=== PATIENT | female | born 1950 | race Caucasian/White ===

== ENCOUNTER 2020-06-02 13:29 | Outpatient (REF) | payer MEDICARE, SELFPAY ==
--- NOTE | ~2020-06-02 | MM_ITS ---
EXAMINATION: MM SCREENING DIGITAL BREAST TOMOSYNTHESIS, BILATERAL CLINICAL INFORMATION: Screening. Asymptomatic. The lifetime risk of breast cancer based on the Tyrer-Cuzick Model is 3%. COMPARISON: Mammography: 03/17/2019, 01/22/2018, 01/05/2017 TECHNIQUE: Digital breast tomosynthesis is performed in both the craniocaudal and mediolateral oblique views along with computer-aided detection (CAD). Synthesized 2D images are generated from the tomosynthesis. Additional right MLO view is provided. FINDINGS: The breasts are heterogeneously dense, which may obscure small masses (ACR BI-RADS breast composition Category c). There are no significant masses, abnormal calcifications, or other abnormalities. No significant changes from prior studies. MM/MM tomosynthesis screening BI IMPRESSION: No mammographic evidence of malignancy. ASSESSMENT: BI-RADS 1: Negative RECOMMENDATION: Routine annual mammography screening. This patient's information was entered into a reminder system with a target due date for their next mammogram.
== END 2020-06-02 13:30 | disposition home or self-care (01) ==
LOC: HO.MAMMO 13:29
PROVIDERS: PCP Family Medicine; Visit Provider Advanced Practice Midwife
DX: Z12.31 Encounter for screening mammogram for malignant neoplasm of breast (principal)
CPT/HCPCS: 77063; 77067

== ENCOUNTER 2021-06-03 13:46 | Outpatient (REF) | payer MEDICARE, SELFPAY ==
--- NOTE | ~2021-06-03 | MM_ITS ---
EXAMINATION: MM SCREENING DIGITAL BREAST TOMOSYNTHESIS, BILATERAL CLINICAL INFORMATION: Screening. Asymptomatic. The lifetime risk of breast cancer based on the Tyrer-Cuzick Model is 3%. COMPARISON: Mammography: 06/02/2020, 03/17/2019, 01/22/2018 TECHNIQUE: Digital breast tomosynthesis is performed in both the craniocaudal and mediolateral oblique views along with computer-aided detection (CAD). Synthesized 2D images are generated from the tomosynthesis. FINDINGS: The breasts are heterogeneously dense, which may obscure small masses (ACR BI-RADS breast composition Category c). There are no significant masses, abnormal calcifications, or other abnormalities. Parenchymal pattern is similar to prior studies. No significant changes. MM/MM tomosynthesis screening BI IMPRESSION: No mammographic evidence of malignancy. ASSESSMENT: BI-RADS 1: Negative RECOMMENDATION: Routine annual mammography screening. This patient's information was entered into a reminder system with a target due date for their next mammogram.
== END 2021-06-03 13:47 | disposition home or self-care (01) ==
LOC: HO.MAMMO 13:46
PROVIDERS: Visit Provider Family Medicine
DX: Z12.31 Encounter for screening mammogram for malignant neoplasm of breast (principal)
CPT/HCPCS: 77063; 77067

== ENCOUNTER 2022-06-05 13:33 | Outpatient (REF) | payer MEDICARE, SELFPAY ==
--- NOTE | ~2022-06-05 | MM_ITS ---
EXAMINATION: MM SCREENING DIGITAL BREAST TOMOSYNTHESIS, BILATERAL CLINICAL INFORMATION: Screening. Asymptomatic. The lifetime risk of breast cancer based on the Tyrer-Cuzick Model is 3%. COMPARISON: Mammography: 06/03/2021, 06/02/2020, 03/17/2019, 01/22/2018. TECHNIQUE: Digital breast tomosynthesis is performed in both the craniocaudal and mediolateral oblique views along with computer-aided detection (CAD). Synthesized 2D images are generated from the tomosynthesis. FINDINGS: The breasts are heterogeneously dense, which may obscure small masses (ACR BI-RADS breast composition Category c). There are no significant masses, abnormal calcifications, or other abnormalities. No architectural abnormality or developing density or significant change from prior studies. The axilla and skin contours are unremarkable. MM/MM tomosynthesis screening BI IMPRESSION: No mammographic evidence of malignancy. ASSESSMENT: BI-RADS 1: Negative RECOMMENDATION: Routine annual mammography screening. This patient's information was entered into a reminder system with a target due date for their next mammogram.
== END 2022-06-05 13:34 | disposition home or self-care (01) ==
LOC: HO.MAMMO 13:33
PROVIDERS: PCP Family Medicine; Visit Provider Family Medicine
DX: Z12.31 Encounter for screening mammogram for malignant neoplasm of breast (principal)
CPT/HCPCS: 77063; 77067

== ENCOUNTER 2022-11-07 09:35 | Outpatient (RCR) | payer MEDICARE, SELFPAY ==
--- NOTE | 2022-11-09 16:59 | MHC.SP.ADU ---
Referring provider: Ada San MD Reason for Referral: Dysphonia Type of Treatment: 23669 Behavioral and Qualitative Analysis of Voice and Resonance Date of Plan of Treatment: 11/07/22 Onset of Symptoms/Illness: 11/07/18 Date Treatment Started: 11/07/22 Medical Diagnosis: Dysphonia Primary Speech Language Diagnosis: R49.0 Dysphonia Secondary Speech Language Diagnosis: History Rehana Boston is a 72 year old woman who came to the clinic today with a complaint of a chronic vocal issue. Rehana reported that she strains to produce a voice that she feels is adequately loud and that her vocalization wavers, can cut in and out, particularly later in the day or evening when she is tired. Rehana stated she first began to have issues with her voice in the fall of 2018 when she had a bad cold and laryngitis. It was exacerbated in early 2019 when she was intubated for hip replacement surgery. She has since had persistent issues with her voice. She has seen two different ENTs, the first in [place], who saw vocal irritation on laryngoscopy, and diagnosed silent GERD and gave Rehana a prescription medication for the condition, which on a repeat scope on a follow up visit appeared to have reduced the irritation noted. However, due to the side effect of calcium depletion of the medication, Rehana ceased taking it. She continued to have vocal symptoms despite the apparent resolution of GERD and decreased irritation in the Larynx, and six months ago went to [facility] where they also found no vocal pathology, but recommended Speech Therapy, but then, unfortunately, did not make the promised referral. Rehana was referred at this time by her Primary Care Provider. 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 She reports that she works hard during these tours to keep her voice at an adequate volume when presenting the tour. She otherwise does not report any particular demand on her voice in other activities of daily living. She and her are retired and live in a private home in [place]. She did report a great deal of personal stress related to caring for her elderly mother who has both dementia and mental health issues, as well as stress and pain associated with her recovery from Hip Replacement Surgery which happened at the time of the Pandemic. She stated that she coped with pain from her hip surgery by taking Tylenol, and was concerned about the affect on her stomach, however a recent GI endoscopy indicated she had no issues, including any ongoing issues with GERD. Rehana reports that she does not smoke, only occasionally has caffeinated drinks or alcohol, and tries to monitor water/hydration but feels she could do a better job with that. She additionally reports no issues with allergies or asthma. Medical History: High Blood Pressure Other: Hyperlipidemia, Osteoarthritis, Osteopenia Medication List: Hydrochlorothiazide, Lisinopril, Multivitamin, Vitamin D3, B-Complex Recent Hospitalizations: No Respiratory Needs: Room Air Patient Orientation: Alert & Oriented x 4 Social History: Employment Status: Retired Current Living Situation: Lives in a private home with . Assistive Devices in use: Glasses/Contacts Past Speech Language Therapy: None Reported Speech, Language, Cognition difficulties: Not Applicable : Assessment Voice Assessment: Voice Loudness: Mildly Soft/Quiet Voice Nasal Resonance: Normal Voice Oral Resonance: Normal Voice Phonatory-based Quality: Harsh/Quivering Voice Pitch: Normal Voice Other Observations: S/Z Ratio: .33 reduced due to effortful phonation. Sustained vowel: < 10 seconds, strained vocal quality, phonation breaks. Clinical Impression: Clinicial Observations: On assessment, Rehana presents with a moderate dysphonia, characterized by a strained/strangled vocal quality in natural speaking, with phonation breaks and increased strain noted on sustained phonation tasks.? Rehana reports that phonation breaks increase in her speaking voice when she fatigues.? Rehana evidenced good posture, however some muscle strain was noted in neck and shoulders during speaking and tasks associated with this assessment.? Rehana is able to vary volume and pitch, although it is effortful.? It was noted that vocal quality of phonation improved when Rehana spontaneously laughed.? On previous ENT assessments, Rehana has evidenced no vocal pathology.? Vocal behavior noted on today's evaluation is consistent with a muscle tension dysphonia, likely to be responsive to vocal therapy. 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 Rehana has not previously had vocal therapy for her dysphonia, and would benefit from therapy focused on improving balance of muscles used in respiration and voice production and relaxation strategies. Impact on Daily Function/Activity Limitations: Daily Activities: Moderate Interpersonal Interactions: Moderate Education: Employment: Community: Moderate Prognosis for Improvement: Good Recommendation for Speech Therapy: Frequency/Duration: One, fourty five minute session weekly for 6-8 weeks Date Range for Service Requested: 6-8 weeks Time to Reassess: 6 weeks [employer] Hand[employer] Goals: Rehana will produce voice for speech that is relaxed, at adequate volume and with clear phonation. Short Term Goals: Goal # : 1. Rehana will use relaxation strategies, including circular breathing, constructive rest, visualization techniques to reduce muscle tension demonstrating 80% independence on instructed techniques. Goal Status: Goal# : 2. With direct instruction, Rehana will demonstrate strategies for laryngeal massage to reduce tension in structures associated with the larynx for a period of three minutes. Goal Status: Goal # : 3.1 Rehana will use diaphragmatic breathing to sustain phonation and volume of specific sounds for 10 seconds. 3.2 Rehana will use diaphragmatic breathing to vary volume on structured connected speech targets with 80% accuracy 3.3 Rehana will use easy onset to initiate sentence length speech targets with 80% accuracy Goal Status: Goal # : 4. Rehana will produce connected speech using easeful breath support, appropriate volume, and steady phonation with 80% accuracy. 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
== END 2022-11-14 14:05 | disposition still patient (30) ==
LOC: HO.SH 09:35
PROVIDERS: Visit Provider Family Medicine
DX: R49.0 Dysphonia (principal)
CPT/HCPCS: 92524

== ENCOUNTER 2023-01-02 13:00 | Outpatient (RCR) | payer MEDICARE, SELFPAY | END 2023-01-04 13:40 | disposition home or self-care (01) | LOC: HO.SH 13:00 | PROVIDERS: Visit Provider Family Medicine | DX: R49.0 Dysphonia (principal) | CPT/HCPCS: 92507 ==

== ENCOUNTER 2023-06-08 12:51 | Outpatient (REF) | payer MEDICARE, SELFPAY | END 2023-06-08 12:52 | disposition home or self-care (01) | LOC: HO.MAMMO 12:51 | PROVIDERS: PCP Family Medicine; Visit Provider Family Medicine | DX: Z12.31 Encounter for screening mammogram for malignant neoplasm of breast (principal) | CPT/HCPCS: 77063; 77067 ==

== ENCOUNTER → 2023-06-08 13:00 | Outpatient (BNV) | payer MEDICARE, SELFPAY | PROVIDERS: PCP Family Medicine; Visit Provider Radiology Diagnostic Radiology | DX: Z12.31 Encounter for screening mammogram for malignant neoplasm of breast (principal) | CPT/HCPCS: 77063; 77067 ==

== ENCOUNTER → 2024-06-13 13:00 | Outpatient (BNV) | payer MEDICARE, SELFPAY | PROVIDERS: PCP Family Medicine; Visit Provider Internal Medicine | DX: Z12.31 Encounter for screening mammogram for malignant neoplasm of breast (principal) | CPT/HCPCS: 77063; 77067 ==

== ENCOUNTER 2024-06-13 13:03 | Outpatient (REF) | payer MEDICARE, SELFPAY | END 2024-06-13 13:04 | disposition home or self-care (01) | LOC: HO.MAMMO 13:03 | PROVIDERS: PCP Family Medicine; Visit Provider Family Medicine | DX: Z12.31 Encounter for screening mammogram for malignant neoplasm of breast (principal) | CPT/HCPCS: 77063; 77067 ==